=== PATIENT | female | born 1985 | race Two or more races ===

== ENCOUNTER 2017-03-07 13:11 | Inpatient (IN) | payer MEDICAID ==
[~2017-03-07] VITALS: Ht 167.6 cm; Wt 94.7 kg
[~2017-03-07 13:11] MED LIST: CALC600T5 PO; FERR325T5 PO; PREN-39 PO; PROPOFOL 200 MG INJ ONE
[2017-03-07 13:41] VITALS: Ht 167.6 cm; Wt 94.7 kg
[2017-03-07] MEDS ORDERED: OXYTOCIN 30 UNITS/LR 500 ML IV SCH ×3 (14:00→16:00)
[2017-03-07] MEDS ORDERED: LIDOCAINE 1% (MPF) 30 ML INJ INJ PRN (14:00)
[2017-03-07] MEDS ORDERED: METHYLERGONOVINE 0.2 MG INJ IM PRN ×2 (14:00→22:00)
[2017-03-07] MEDS ORDERED: CARBOPROST 250 MCG INJ IM PRN ×2 (14:00→22:00)
[2017-03-07] MEDS ORDERED: OXYTOCIN 30 UNITS/LR 500 ML IV PRN ×2 (14:00→22:00)
[2017-03-07] MEDS ORDERED: BUTORPHANOL 2 MG INJ IV PRN (14:00)
[2017-03-07] MEDS ORDERED: LACTATED RINGER'S 1,000 ML IV PRN (14:00)
[2017-03-07] MEDS ORDERED: MISOPROSTOL 200 MCG TAB PR PRN ×2 (14:00→22:00)
[2017-03-07 15:05] VITALS: BP 121/80; PULSE 80; RESP 18
[2017-03-07] MEDS: LACTATED RINGER'S 1,000 ML IV SCH ×2 (15:05→20:46)
[2017-03-07 16:32] LABS: ABNORMAL IP MESSAGE 1; HEMATOCRIT 34.6 % (37.0-47.0); HEMOGLOBIN 11.6 g/dl (12.0-16.0); MEAN CORPUSCULAR HEMOGLOBIN 28.3 pg (29.0-33.0); MEAN CORPUSCULAR HGB CONC 33.5 g/dl (32.0-37.0); MEAN CORPUSCULAR VOLUME 84.4 fl (82.0-101.0); MEAN PLATELET VOLUME 13.7 fl (7.4-10.4); PLATELET COUNT 138 10^3/UL (140-415); RED CELL DISTRIBUTION WIDTH 14.2 % (11.5-14.5); WHITE BLOOD COUNT 7.4 10^3/ul (4.8-10.8)
[2017-03-07 16:48] LABS: INR 0.94; PROTIME 12.6 Sec (12.2-14.2)
[2017-03-07 16:53] LABS: POSITIVE DIFF @See below
[2017-03-07 18:01] LABS: MONOCYTE # 0.5 10^3/ul (0.3-0.9); MONOCYTES % (M) 7 % (0-11)
[2017-03-07] MEDS: IBUPROFEN 600 MG TAB PO PRN ×2 (18:40→20:46)
--- NOTE | 2017-03-07 18:41 | HP ---
Date/Time of Note Date/Time of Note DATE: 03/07/17 TIME: 18:30 OB - History Hx of Present Free Text/Dictation 31 y.o A1(ia) at 40w2d in active labor with intact membrane initial VE 5-6/80% /-2 EFM u.c Q 3-7 min strong in intensity GBS neg admitted for expectant management Chief Complaint: uterine conractions Estimated Due Date: Mar 05, 2017 : 5 Para: 3 Spontaneous : 0 Therapeutic : 1 Care: Good Care Ultrasounds: Normal mid trimester US Obstetrical Complications: None Medical Complications: None Past Family/Social History * Past Medical, Surgical, Family and Obstetric Histories reviewed from chart. Blood Type: A+ Rubella: immune RPR/VDRL: Negative GBS Status: Negative HBsAG: Negative OB Admission Exam Vital Signs Vital Signs Vital Signs Date Time Temp Pulse Resp B/P Pulse Ox O2 Delivery O2 Flow Rate FiO2 03/07/17 15:05 98.7 80 18 121/80 Room Air Physical Exam HEENT: WNL Heart: Rhythm Normal Lungs: Clear, Equal Abdomen: WNL Extremities: Normal Reflexes: Normal Cervical Dilatation: 5cm Effacement: Other (80%) Station: -2 Membranes: Intact Amniotic Fluid: Unevaluable Heart Rate: 140's Accelerations: Accelerations Present Decelerations: No Decelerations Varibility: Moderate Contractions on Admission: < 5 Minutes Apart Intensity: Firm Last 72 hours Lab Results CBC & BMP 03/07/17 15:00 OB Assessment/Plan Reason for admission: active labor Other Assessment: IUP 40w2d Plan: Expectant Management ELENI KRUSE MD Mar 07, 2017 18:40
--- NOTE | 2017-03-07 18:47 | LDN ---
Date/Time of Note Date/Time of Note DATE: 03/07/17 TIME: 18:44 Delivery Summary normal vaginal delivery Weeks of Gestation 40w2d Placenta Delivered: Spontaneously Meconium: none Episiotomy: No Perineal laceration: 1 Laceration repair: 000 ch gut Anesthesia type: None Estimated blood loss: 100 Sponge & Needle done & correct: Yes All needle counts correct: Yes Any foreign bodies felt in the: No Problems: Delivery Information Sex Sex: male Apgars 1 Minute: 8 5 Minute: 9 Suctioning Nose & mouth suctioned at davy: Yes Delee suction performed: No Umbilical Cord Umbilical cord with: 3 Vessels Cord presentations: no nuchal cord Cord Blood was obtained: Yes Mother & Baby Disposition Disposition Mom & Baby to Maternity; Good: Yes Mom transferred to: Other () Baby to NICU: No ELENI KRUSE MD Mar 07, 2017 18:47
[2017-03-07] MEDS ORDERED: MIDAZOLAM 1 MG/ML 2 ML INJ ONE (19:46)
[2017-03-07] MEDS ORDERED: FENTAnyl 50 MCG/ML VIAL ONE (19:46)
[2017-03-07] MEDS ORDERED: CEFAZOLIN 2 GM/50 ML (PMX) 50 ML IVPB ONE (20:30)
--- NOTE | 2017-03-07 20:42 | OPR ---
Date/Time of Note Date/Time of Note DATE: 03/07/17 TIME: 20:31 Operative Report Procedure Date: Mar 07, 2017 Preoperative Diagnosis hemorrhage Postoperative Diagnosis uterine atony Operation/Procedure Performed uterine curettage insertion of bakri Surgeon see signature line Weaver Hand none Anesthesia Type: moderate sedation Anesthesiologist: ROSEANN BRADY Estimated Blood Loss: 100 - 150 ml's Transfusion none Specimen none Grafts/Implants none Complications none Pt Condition Post Procedure: stable Disposition: PACU Indications postpoartum hemorrhage Procedure Description under the moderate sedation parient was lpace on dorsolithothomy position perineal area and vagina was prepped and draped in usual fashion anterior lip was grsped with ring forceps . uterine cavity explored no abnormal tissue felt except multiplre dilated vessels? cavity was curetted with large curette until sg of emptiness(bubble) then inserted bakri cath which was fill with saline 350cc and vaginal pakcing done bakri cath was conncted to leg bag and sent to par in stable condition ebl 150cc sponge count correct ELENI KRUSE MD Mar 07, 2017 20:41
[2017-03-07] MEDS ORDERED: AL HYDROX/MG HYDROX/SIMETH 30 ML CUP PO ONE (21:00)
[2017-03-07] MEDS ORDERED: OXYCODONE/ASPIRIN (4.88/325) TAB PO PRN (22:00)
[2017-03-07] MEDS ORDERED: WITCH HAZEL/GLYCERIN PAD PR PRN (22:00)
[2017-03-07] MEDS ORDERED: LANOLIN 7 GM TUBE TOP PRN (22:00)
[2017-03-07] MEDS ORDERED: BENZOCAINE 20% 56 ML SPRAY TOP PRN (22:00)
[2017-03-07] MEDS ORDERED: ZOLPIDEM 5 MG TAB PO PRN (22:00)
[2017-03-07 22:40] VITALS: BP 127/80; PULSE 79; RESP 18
[2017-03-08] MEDS: IBUPROFEN 600 MG TAB PO SCH ×4 (00:13→17:13)
[2017-03-08 01:24] LABS: ABNORMAL IP MESSAGE 1; BASOPHILS % 0.2 % (0.0-2.0); EOSINOPHILS % 0.1 % (0.0-7.0); HEMATOCRIT 31.6 % (37.0-47.0); HEMOGLOBIN 10.5 g/dl (12.0-16.0); LYMPHOCYTES # 1.8 10^3/ul (0.8-2.9); LYMPHOCYTES % 17.7 % (15.0-51.0); MEAN CORPUSCULAR HEMOGLOBIN 28.2 pg (29.0-33.0); MEAN CORPUSCULAR HGB CONC 33.2 g/dl (32.0-37.0); MEAN CORPUSCULAR VOLUME 84.9 fl (82.0-101.0); MEAN PLATELET VOLUME 13.5 fl (7.4-10.4); MONOCYTE # 0.5 10^3/ul (0.3-0.9); MONOCYTES % 4.5 % (0.0-11.0); NEUTROPHILS % 77.1 % (39.0-77.0); PLATELET COUNT 116 10^3/UL (140-415); RED BLOOD COUNT 3.72 10^6/ul (4.20-5.40); RED CELL DISTRIBUTION WIDTH 13.9 % (11.5-14.5); WHITE BLOOD COUNT 10.4 10^3/ul (4.8-10.8)
[2017-03-08 01:27] LABS: POSITIVE DIFF @See below
[2017-03-08 04:00] VITALS: BP 133/77; PULSE 78; RESP 18
[2017-03-08] MEDS: OXYCODONE/ASPIRIN (4.88/325) TAB PO PRN ×3 (04:30→18:51)
[2017-03-08 08:10] VITALS: BP 113/69; PULSE 70; RESP 16
[2017-03-08 08:23] LABS: ABNORMAL IP MESSAGE 1; BASOPHILS % 0.2 % (0.0-2.0); EOSINOPHILS # 0.1 10^3/ul (0.0-0.5); EOSINOPHILS % 0.6 % (0.0-7.0); HEMATOCRIT 30.6 % (37.0-47.0); LYMPHOCYTES # 2.2 10^3/ul (0.8-2.9); LYMPHOCYTES % 26.2 % (15.0-51.0); MEAN CORPUSCULAR HGB CONC 32.7 g/dl (32.0-37.0); MEAN CORPUSCULAR VOLUME 85.7 fl (82.0-101.0); MONOCYTE # 0.5 10^3/ul (0.3-0.9); MONOCYTES % 5.9 % (0.0-11.0); NEUTROPHIL # 5.6 10^3/ul (1.6-7.5); NEUTROPHILS % 66.6 % (39.0-77.0); PLATELET COUNT 126 10^3/UL (140-415); RED BLOOD COUNT 3.57 10^6/ul (4.20-5.40); RED CELL DISTRIBUTION WIDTH 14.2 % (11.5-14.5); WHITE BLOOD COUNT 8.4 10^3/ul (4.8-10.8)
[2017-03-08 08:28] LABS: POSITIVE DIFF @See below
[2017-03-08] MEDS ORDERED: INFLUENZA VIRUS VACCINE 0.5 ML (DISPENSING) IM* ONE (09:00)
[2017-03-08] MEDS: SENNA/DOCUSATE NA (8.6MG/50MG) TAB PO SCH ×2 (10:37→21:05)
[2017-03-08 12:50] VITALS: BP 114/77; PULSE 60; RESP 18
[2017-03-08 16:15] VITALS: BP 109/74; PULSE 67; RESP 17
[2017-03-08 19:30] VITALS: BP 119/75; PULSE 74; RESP 22
--- NOTE | 2017-03-08 21:48 | PN ---
Date/Time of Note Date/Time of Note DATE: 03/08/17 TIME: 21:44 OB Subjective Subjective Subjective no c/o OB Objective Objective Objective vss afebrile fundus firm lochia heavy bacri draiage scanty calf neg OB Assessment/Plan Other Assessment: stable post vaginal delivery s/p uterine curettage for PPH Other plan: observe poss d/s home in am tubal ligation after 6weeks ELENI KRUSE MD Mar 08, 2017 21:48
[2017-03-09 00:10] VITALS: BP 114/68; PULSE 72; RESP 19
[2017-03-09] MEDS: IBUPROFEN 600 MG TAB PO SCH ×4 (00:13→17:28)
[2017-03-09 04:00] VITALS: BP 100/60; PULSE 67; RESP 21
[2017-03-09 07:50] VITALS: BP 111/64; PULSE 68; RESP 18
[2017-03-09] MEDS: SENNA/DOCUSATE NA (8.6MG/50MG) TAB PO SCH (08:08)
[2017-03-09] MEDS ORDERED: DIPHTH/TET/ACEL PERTUSS (ADULT) 0.5 ML VIAL IM* ONE (09:00)
--- NOTE | 2017-03-09 13:54 | PD.PPDC ---
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
--- NOTE | 2017-03-09 13:57 | DS ---
Date/Time of Note Date/Time of Note DATE: 03/09/17 TIME: 13:56 Obstetrical Discharge Record Final Diagnosis Final Diagnosis: Term delivered Vaginal Delivery Obstetrical Delivery: Spontaneous, Laceration, Repaired Complications Other (PPH) Augmentation: Yes Rupture of Membranes: No Condition on Discharge Physical Assessment Last Vitals: vss afebrile Voiding: Yes Bowel Movement: Yes Breast: Soft, non-tender Fundus: Firm Calf Tenderness: No Patient Condition: Stable ELENI KRUSE MD Mar 09, 2017 13:57
[2017-03-09 16:30] VITALS: BP 127/71; PULSE 65; RESP 18
== END 2017-03-09 19:30 | disposition home or self-care (01) | DRG 767 ==
LOC: OBT 13:11 → L-D 13:12 → OBT 13:19 → L-D 13:27 → PP1 22:35
PROVIDERS: ADMIT Specialist; ATTEND Specialist
PROC: 10D17ZZ Extraction of Products of Conception, Retained, Via Natural or Artificial Opening (ICD-10-PCS; 2017-03-07)
PROC: 0W3R7ZZ Control Bleeding in Genitourinary Tract, Via Natural or Artificial Opening (ICD-10-PCS; 2017-03-07)
PROC: 0HQ9XZZ Repair Perineum Skin, External Approach (ICD-10-PCS; 2017-03-07)
PROC: 10E0XZZ Delivery of Products of Conception, External Approach (ICD-10-PCS; principal; 2017-03-07 18:00)
DX: O70.0 First degree perineal laceration during delivery (principal); Z37.0 Single live birth; O72.1 Other immediate postpartum hemorrhage; Z3A.49 Greater than 42 weeks gestation of pregnancy
CPT/HCPCS: 85025; 85610; 85730; 86592; 86850; 86900; 86901; 86920; 87340; 90686; 90715; A4310; J0595; J0690; J2250; J2590; J3010; J7120